=== PATIENT | male | born 1965 | race Caucasian/White ===

== ENCOUNTER 2016-06-24 21:44 | Emergency (ER) | payer OTHER ==
[2016-06-24 23:56] LABS: BASOPHIL 0.1 % (0-2); EOSINOPHIL 1.7 % (0-5); HCT 41.3 % (42.0-52.0); HGB 14.3 g/dl (13.2-18.0); LYMPHOCYTE 19.1 % (15-48); MCH 31.6 pg (25.0-31.0); MCHC 34.6 g/dL (32.0-36.0); MCV 91.2 fL (78.0-100.0); MONOCYTE 5.6 % (0-12); MPV 10.8 fL (6.0-9.5); NEUTROPHIL 73.5 % (41-80); PLT 237 K/uL (150-400); RBC 4.53 M/uL (4.70-6.00); RDW 12.6 % (11.5-14.0); WBC 8.8 K/uL (4.0-10.5)
[2016-06-25 00:36] LABS: ALBUMIN 4.5 g/dL (3.5-5.0); BILIRUBIN - TOTAL 0.3 mg/dL (0.1-1.0); CREATININE 0.9 mg/dL (0.7-1.2); GLOBULIN (CALCULATION) 2.4 g/dL (2.2-4.2); POTASSIUM 4.7 mmol/L (3.5-5.1); TOTAL PROTEIN 6.9 g/dL (6.4-8.3)
== END 2016-06-25 01:24 | disposition home or self-care (01) ==
LOC: FER 21:44
PROVIDERS: Emergency Medicine
DX: G43.909 Migraine, unspecified, not intractable, without status migrainosus (principal); J45.909 Unspecified asthma, uncomplicated; Z79.51 Long term (current) use of inhaled steroids
CPT/HCPCS: 36415; 70450; 80053; 85025; 93005